=== PATIENT | male | born 1930 | race African-American/Black ===

== ENCOUNTER 2017-09-15 15:43 | Outpatient (CLI) | payer MEDICARE, MEDICAID ==
--- NOTE | 2017-09-15 17:34 | SJPRAD ---
TWO VIEW CHEST 09/15/17 COMPARISON: 06/14/17. CLINICAL HISTORY: Chronic bronchitis. FINDINGS: There is abnormal interstitial reticulonodular opacification throughout the right lung, new from prio r exam. Lungs are hyperinflated. Cardiomediastinal silhouette is stable. IMPRESSION: Interval development of diffuse alveolar and interstitial opacities in the right lung favoring atypic al pneumonia. Followup to resolution is recommended. POS: [facility]
== END 2017-09-15 15:44 | disposition home or self-care (01) ==
LOC: MWLC RAD 15:43
PROVIDERS: ATTEND Family Medicine
DX: J41.1 Mucopurulent chronic bronchitis (principal)

== ENCOUNTER 2017-10-12 14:32 | Outpatient (CLI) | payer MEDICARE, MEDICAID ==
--- NOTE | 2017-10-12 15:35 | RAD ---
THREE VIEWS LUMBAR SPINE 10/12/17 HISTORY: New onset back pain. AP, lateral and cone down views of the lumbar spine demonstrate five nonribbearing lumbar vertebrae. Atherosclerotic calcification of the abdominal aorta is seen. There is an area of height loss in the superior end plate of L3 compatible with superior end plate compression fracture. This appears to hav e been present on the patient's previous CT from 06/15/17. In addition, right renal staghorn calculus is also again seen. Large amount of stool is seen in the c olon. IMPRESSION: Old superior end plate L3 fracture. No acute lumbar spine abnormality seen. POS: [facility]
== END 2017-10-12 14:33 | disposition home or self-care (01) ==
LOC: RAD 14:32
PROVIDERS: ATTEND Family Medicine
DX: M54.5 Low back pain (principal); K59.00 Constipation, unspecified
CPT/HCPCS: 72100

== ENCOUNTER 2018-01-13 08:57 | Emergency (ER) | payer MEDICARE, MEDICAID ==
[2018-01-13 10:47] LABS: Bilirubin Negative (Negative); Blood, Urine Large (Negative); Glucose, Urine (Dipstick) Negative (Negative); Leukocyte Large (Negative); Nitrite Positive (Negative); Protein, Urine (Dipstick) 100 mg/dL (Neg-Trace); Urobilinogen 0.2 mg/dL (0.2-1.0); pH, Urine 8.5 (5.0-9.0)
[2018-01-13 10:51] LABS: Clarity TURBID (Clear)
[2018-01-13 11:08] LABS: Bacteria/HPF 4+ HPF (None Seen); Hyaline Casts/LPF NONE SEEN LPF (0-3 Hyaline); RBC/HPF GREATER THAN 50-TNTC HPF (0-3); Squamous Epithelial 0-3 HPF (0-3)
== END 2018-01-13 11:41 | disposition home or self-care (01) ==
LOC: ERS 08:57
DX: T83.018A Breakdown (mechanical) of other urinary catheter, initial encounter (principal); N39.0 Urinary tract infection, site not specified; G30.9 Alzheimer's disease, unspecified; F02.80 Dementia in other diseases classified elsewhere, unspecified severity, without behavioral disturbance, psychotic disturbance, mood disturbance, and anxiety; I25.10 Atherosclerotic heart disease of native coronary artery without angina pectoris; I25.2 Old myocardial infarction; E78.5 Hyperlipidemia, unspecified; F32.9 Major depressive disorder, single episode, unspecified; Z79.02 Long term (current) use of antithrombotics/antiplatelets; Z79.899 Other long term (current) drug therapy
CPT/HCPCS: 51705; 81003; 81015; 87086

== ENCOUNTER 2018-01-18 11:27 | Observation (INO) | payer MEDICARE, MEDICAID ==
[2018-01-18 12:11] LABS: Bilirubin Negative (Negative); Blood, Urine Moderate (Negative); Clarity TURBID (Clear); Glucose, Urine (Dipstick) Negative (Negative); Leukocyte Large (Negative); Nitrite Negative (Negative); Protein, Urine (Dipstick) 100 mg/dL (Neg-Trace); Specific Gravity, Urine 1.011 (1.002-1.036); Urobilinogen 0.2 mg/dL (0.2-1.0); pH, Urine 8.5 (5.0-9.0)
[2018-01-18 12:14] LABS: Bacteria/HPF 4+ HPF (None Seen)
[2018-01-18 12:15] LABS: Pathc Cast-AUWi Flag 7.75 (0-2.49)
[2018-01-18 12:24] LABS: Crystals/HPF 4+ TRIPLE PHOS HPF (Negative); Hyaline Casts/LPF 0-3 HYALINE CAST LPF (0-3 Hyaline); Other Casts/LPF None Seen LPF (0-3 Hyaline)
[2018-01-18 12:36] LABS: #Eosinphils 0.2 thou/uL (0.0-0.7); #Lymphocytes 1.3 thou/uL (1.20-3.40); #Monocytes 0.3 thou/uL (0.11-0.59); #Neutrophils 6.1 thou/uL (1.40-6.50); %Basophils 0.6 % (0.0-1.0); %Eosinophils 2.7 % (0.0-10.0); %Lymphocytes 15.9 % (21.0-51.0); %Monocytes 3.9 % (0.0-10.0); %Neutrophils 76.9 % (42.0-75.0); Hemoglobin 13.2 g/dL (14.0-18.0); Mean Corpuscular HGB CONC 31.7 g/dL (32.0-36.0); Mean Corpuscular Volume 85.4 fl (80.0-94.0); Mean Platelet Volume 8.1 fL (7.4-10.4); Platelet Count 122 thou/uL (130-400); RBC Distribution Width 13.6 % (11.5-14.5); Red Blood Cell (RBC) Count 4.89 mill/uL (4.70-6.10); White Blood Cell (WBC) Count 7.9 thou/uL (4.8-10.8)
[2018-01-18 12:46] LABS: ALT (SGPT) Less than 7 U/L (8-55); AST (SGOT) 9 U/L (5-34); Albumin 3.5 g/dL (3.4-4.8); Alkaline Phosphatase 77 U/L (40-150); Anion Gap 13 mmol/L (10-20); BUN (Urea Nitrogen) 46 mg/dL (8.4-25.7); Bilirubin, Total 0.5 mg/dL (0.2-1.2); Calc. Creatinine Clearance 0 mL/min (70-130); Calcium 9.2 mg/dL (7.8-10.44); Carbon Dioxide 23 mmol/L (23-31); Chloride 107 mmol/L (98-107); Estimated GFR-MDRD 45; Globulin 3.9 g/dL (2.4-3.5); Glucose 109 mg/dL (83-110); Lipase 28 U/L (8-78); Potassium 4.6 mmol/L (3.5-5.1); Protein, Total 7.4 g/dL (5.8-8.1); Sodium 138 mmol/L (136-145)
[2018-01-18 12:56] LABS: CKMB 0.6 ng/mL (0-6.6); Troponin I Less than 0.010 ng/mL (< 0.028)
--- NOTE | 2018-01-18 13:01 | RAD ---
PORTABLE AP CHEST X-RAY: 01/18/2018 HISTORY: Nausea and vomiting. Low blood pressure. COMPARISON: 09/15/2017 FINDINGS: Post surgical changes related to CABG are again noted. The cardiac silhouette and pulmonary vasculat ure are within normal limits for the portable technique of the study. The interstitial and patchy pa renchymal opacities within the right lung have significantly improved, although mild bibasilar inters titial densities, as well as a few interstitial densities in the lateral right mid lung zone do persi st, probably related to areas of scarring. No new focal area of consolidation or pleural fluid is pr esent. Linear lucency overlying the lateral aspect of the left mid lung zone is likely related to an overlying skin fold. Vascular calcifications are seen in an ectatic thoracic aorta. There is evide nce of prior granulomatous disease. Osteopenia is present. IMPRESSION: Mild chronic lung changes without evidence of an acute cardiopulmonary process. POS: [facility]
[2018-01-18] MEDS ORDERED: Acetaminophen 325 MG TAB PO PRN (13:50)
[2018-01-18] MEDS ORDERED: Ondansetron ODT 4 MG TAB PO PRN (13:50)
--- NOTE | 2018-01-18 15:06 | HP ---
PRIMARY CARE PROVIDER: Mellisa Dee M.D. CHIEF COMPLAINT: Referred to the [facility] by [facility]. HISTORY OF PRESENT ILLNESS: The patient apparently had decrease in mental status and was drooling up on feeding this morning. EMS was called. The patient had hypotensive at the scene 80/50. Patient w as given 800 mL of fluid. Currently, he is awake and alert. He has no memory of the event and has d ementia. He is in no distress. His blood pressure in the emergency room 140/76, pulse 70, respirati ons 20 and temperature was 97.4. PAST MEDICAL HISTORY: History of coronary artery disease, carotid endarterectomy, history of dementi a, coronary artery disease, abdominal aortic aneurysm, frequent UTIs, suprapubic catheter, benign pro static hypertrophy, and dyslipidemia. CURRENT MEDICATIONS: Hytrin 2 mg a day, Zoloft 25 mg a day, Levaquin 500 mg a day, Plavix 75 mg a da y. SOCIAL HISTORY: Apparently lives with family. No smoking, alcohol or drugs. FAMILY HISTORY: No history available from the patient. No family member is present. ALLERGIES: No known medical allergies. REVIEW OF SYSTEMS: Basically unobtainable. Patient says no to all requests. He is not oriented to place or time. PHYSICAL EXAMINATION: VITAL SIGNS: As mentioned before, his vital signs are stable. Blood pressure 140/76, pulse 70, resp irations 20, temperature 97.4, and O2 sat 100% on room air. HEENT: Examination of his head, eyes, ears, nose, and throat reveal pupils equal and round, bilatera l arcus. Extraocular movement is grossly intact. Sclerae are white. Tympanic membranes are clear. Nose is clear. Oral mucous membranes are wet. He has multiple missing teeth with horrid dental hyg iene. NECK: No jugular venous distention, adenopathy or thyromegaly. CHEST: Clear to percussion. Clear to auscultation with no focal findings. HEART: Regular rate and rhythm. First and second heart sounds are clear. No murmurs or gallop. ABDOMEN: Soft, bowel sounds are normal. No hepatosplenomegaly, no masses, no rebound. He has a blaine ining suprapubic catheter. EXTREMITIES: Reveal no cyanosis, clubbing or edema. PULSES: Carotid, radial, femoral, and dorsalis pedis pulses intact. SKIN: Warm and dry without bruises or rash. HEME/LYMPH: No tender or swollen lymph nodes in axilla, inguinal or cervical area. Lymphatic survey , no tender or swollen lymph nodes in axilla, inguinal, and cervical area. NEUROLOGICAL: Deep tendon reflexes grossly symmetric. Moves all extremities. NEUROLOGIC: Cranial nerves II-XII are intact. IMAGING DATA: EKG unable to find, we will find and dictate diagnosis later. Chest x-ray; no cardiom egaly, CHF or infiltrate. He has postoperative changes. Chest x-ray is consistent with COPD. LABORATORY DATA: Reviewed by me. White count 79 with mild neutrophilia, hemoglobin 13.2, hematocrit 41.8, platelet count 122,000. Creatinine 1.74, BUN 46. Electrolytes normal. Liver function tests normal. Cardiac enzymes normal. He has 11-20 red cells, 11 white cells, 11-20 epithelial cells on U A. A urine culture done 5 days ago shows 2 gram-negative organisms. The patient has been on Levaqui n for same. ADMITTING DIAGNOSES: 1. Apparent altered mental status. 2. Hypotension. 3. Coronary artery disease. 4. Chronic kidney disease stage 3. 5. Chronic obstructive pulmonary disease. 6. Multi-infarct dementia. 7. 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 PLAN: 1. IV fluids. 2. Stop terazosin. As with suprapubic catheterization, he does not need any treatment for benign pr ostatic hypertrophy and it is possibly the cause of his transient hypotension. 3. Continue Plavix, sertraline, and Levaquin as he probably needs 14-21 days of antibiotics for his current infection. CODE STATUS: FULL. This is based on the old chart. Unfortunately, I have no family member here adi t I have been able to contact.
[2018-01-18] MEDS: Dextrose 5 %-0.45 % NaCl 1,000 ML IV SCH ×2 (15:27→22:51)
[2018-01-18 16:11] LABS: Troponin I Less than 0.010 ng/mL (< 0.028)
[2018-01-18 19:07] LABS: Troponin I Less than 0.010 ng/mL (< 0.028)
[2018-01-18] MEDS: Nitrofurantoin Macrocrystal 50 MG CAP PO SCH ×2 (20:09)
[2018-01-19 05:24] LABS: #Eosinphils 0.4 thou/uL (0.0-0.7); #Lymphocytes 2.5 thou/uL (1.20-3.40); #Monocytes 0.5 thou/uL (0.11-0.59); #Neutrophils 4.7 thou/uL (1.40-6.50); %Basophils 0.2 % (0.0-1.0); %Eosinophils 4.8 % (0.0-10.0); %Lymphocytes 30.8 % (21.0-51.0); %Monocytes 6.4 % (0.0-10.0); %Neutrophils 57.7 % (42.0-75.0); Hemoglobin 12.2 g/dL (14.0-18.0); Mean Corpuscular HGB CONC 32.9 g/dL (32.0-36.0); Mean Corpuscular Hemoglobin 27.8 pg (27.0-31.0); Mean Corpuscular Volume 84.6 fl (80.0-94.0); Mean Platelet Volume 7.9 fL (7.4-10.4); Platelet Count 123 thou/uL (130-400); RBC Distribution Width 13.3 % (11.5-14.5); Red Blood Cell (RBC) Count 4.39 mill/uL (4.70-6.10); White Blood Cell (WBC) Count 8.2 thou/uL (4.8-10.8)
[2018-01-19 05:37] LABS: Anion Gap 12 mmol/L (10-20); BUN (Urea Nitrogen) 39 mg/dL (8.4-25.7); Calc. Creatinine Clearance 25 mL/min (70-130); Calcium 8.4 mg/dL (7.8-10.44); Carbon Dioxide 21 mmol/L (23-31); Chloride 105 mmol/L (98-107); Estimated GFR-MDRD 66; Glucose 104 mg/dL (83-110); Potassium 4.1 mmol/L (3.5-5.1); Sodium 134 mmol/L (136-145)
[2018-01-19] MEDS: Dextrose 5 %-0.45 % NaCl 1,000 ML IV SCH (05:40)
[2018-01-19 07:09] VITALS: TEMP 97.5
[2018-01-19] MEDS: Nitrofurantoin Macrocrystal 50 MG CAP PO SCH ×2 (08:44)
[2018-01-19] MEDS ORDERED: Clopidogrel Bisulfate 75 MG TAB PO SCH (09:00)
[2018-01-19 11:11] VITALS: BP 149/58
--- NOTE | 2018-01-19 11:23 | PDOC.PN ---
- Subjective Encounter Start Date: 01/19/18 Encounter Start Time: 11:21 Subjective: alertt - Objective Resuscitation Status: Resuscitation Status FULL:Full Resuscitation MAR Reviewed: Yes Vital Signs & Weight: Vital Signs (12 hours) Temp Pulse Resp BP Pulse Ox 01/19/18 11:10 97.5 F L 66 16 149/58 H 99 01/19/18 08:00 97.5 F L 67 16 98 01/19/18 07:08 97.5 F L 67 16 123/87 98 01/19/18 04:00 97.8 F 61 16 156/64 H 99 01/19/18 00:00 97.5 F L 65 16 138/66 100 Weight Weight 97 lb I&O: 01/18/18 01/19/18 01/20/18 06:59 06:59 06:59 Intake Total 3010 300 Output Total 250 650 Balance 2760 -350 Result Diagrams: 01/19/18 04:54 01/19/18 04:54 Phys Exam - Physical Examination Neck: no JVD Respiratory: clear to auscultation bilateral Cardiovascular: RRR, no significant murmur Gastrointestinal: soft, positive bowel sounds Musculoskeletal: no edema Dx/Plan (1) Hypotension Status: Acute Qualifiers: Hypotension type: unspecified hypotension type Qualified Code(s): I95.9 - Hypotension, unspecified (2) Edphq-ok-yqobbgr kidney injury Code(s): N17.9 - ACUTE KIDNEY FAILURE, UNSPECIFIED; N18.9 - CHRONIC KIDNEY DISEASE, UNSPECIFIED Status: Acute Qualifiers: Chronic kidney disease stage: stage 3 (moderate) Comment: Resolving with supportive mgmt, fluids and abx (3) CAD (coronary artery disease) Code(s): I25.10 - ATHSCL HEART DISEASE OF [place] CORONARY ARTERY W/O ANG PCTRS Status: Chronic Qualifiers: Coronary Disease-Associated Artery/Lesion type: [place] artery [place] vs. transplanted heart: [place] heart Associated angina: without angina Qualified Code(s): I25.10 - Atherosclerotic heart disease of [place] coronary artery without angina pectoris (4) Dementia Code(s): F03.90 - UNSPECIFIED DEMENTIA WITHOUT BEHAVIORAL DISTURBANCE Status: Chronic Qualifiers: Dementia type: vascular dementia Dementia behavioral disturbance: without behavioral disturbance Qualified Code(s): F01.50 - Vascular dementia without behavioral disturbance (5) Suprapubic catheter Code(s): Z93.59 - OTHER CYSTOSTOMY STATUS Status: Acute - Plan 1/2 blood C&S staph epi- contamenent -: urine C&S mixed raven- colonized -: BP ok off terrazosin- cont off , call family re DC home * .
[2018-01-19 12:15] VITALS: BMI 15.6
--- NOTE | 2018-01-19 12:42 | DIS ---
DATE OF ADMISSION: 01/18/2018 DATE OF DISCHARGE: 01/19/2018 PRIMARY CARE PROVIDER: Mellisa Dee M.D. DISCHARGE DISPOSITION: Home. FINAL DIAGNOSES: Hypotension, resolved; multi-infarct dementia; coronary artery disease, without ang ellyn; chronic kidney disease, stage 3; suprapubic catheter; chronic bladder colonization. DISCHARGE MEDICATIONS: Zoloft 25 mg a day, glucosamine 1500 mg a day, Plavix 75 mg a day, nitrofuran toin 100 mg p.o. b.i.d., Tessalon 100 mg p.o. t.i.d. p.r.n. ALLERGIES: No known allergies. PENDING AT THE TIME OF DISCHARGE: Nothing. CODE STATUS: FULL. HOSPITAL COURSE: Patient was sent to the hospital for drooling, decreased mental status and found to have a low blood pressure by EMS. By the time he got to the emergency room, his symptoms have resol shaheen. In review of his medicines, he is on terazosin for benign prostatic hypertrophy and urinary ret ention, he has a chronic indwelling suprapubic catheter, it does not void to his prostate. This was discontinued. His blood pressures subsequently 156/64, 123/87, 149/58. He is awake, alert, and in h is baseline mental status. Laboratory done. CBC: White count 7.9, follow up 8.2. Hemoglobin 13.2, follow up 12.2. Platelet count 122,000, follow up 123,000. Initial creatinine 1.74, follow up 1.25 . BUN 46, follow up 39. Electrolytes balanced. Cardiac enzymes normal x3. His blood culture 1 out of 2 grew a gram positive Staph epi, which is considered a contaminant. His urine culture is mixed culture, isolation in progress. He shows no signs of infection with a normal white count, no fever, chills, etc. He is being discharged. His last bladder culture grew four different bacteria and prob trip with indwelling catheter is his chronic colonization. This patient has chronic bladder colonizati on with no evidence of infection. DIET: As tolerated. AMBULATION: As tolerated. CONSULTATIONS: None. PROCEDURES: None. I have discussed his care with his family. Follow up with Dr. Dee in 7 days.
== END 2018-01-19 16:10 | disposition home or self-care (01) ==
LOC: ERS 11:27 → T4-A 13:20
PROVIDERS: ADMIT Internal Medicine; ATTEND Internal Medicine
DX: I95.9 Hypotension, unspecified (principal); F01.50 Vascular dementia, unspecified severity, without behavioral disturbance, psychotic disturbance, mood disturbance, and anxiety; I25.10 Atherosclerotic heart disease of native coronary artery without angina pectoris; N18.3 Chronic kidney disease, stage 3 (moderate); E78.5 Hyperlipidemia, unspecified; N40.0 Benign prostatic hyperplasia without lower urinary tract symptoms; J44.9 Chronic obstructive pulmonary disease, unspecified; N20.0 Calculus of kidney; N17.9 Acute kidney failure, unspecified; Z79.02 Long term (current) use of antithrombotics/antiplatelets; Z79.2 Long term (current) use of antibiotics; Z79.899 Other long term (current) drug therapy; Z96.0 Presence of urogenital implants; Z98.890 Other specified postprocedural states; Z87.891 Personal history of nicotine dependence; Z87.440 Personal history of urinary (tract) infections
CPT/HCPCS: 71045; 80048; 80053; 82553; 83605; 83690; 84484 ×2; 85025 ×2; 87040; 87077; 87086; 87149 ×2; 87186; 93005; 96361 ×2; 96374; 99285; G0378; 36415; 81003; 81015; J0696

== ENCOUNTER 2018-05-01 20:02 | Inpatient (IN) | payer MEDICARE, MEDICAID ==
[2018-05-01 20:49] LABS: #Eosinphils 1.2 thou/uL (0.0-0.7); #Lymphocytes 1.3 thou/uL (1.20-3.40); #Monocytes 0.3 thou/uL (0.11-0.59); #Neutrophils 5.5 thou/uL (1.40-6.50); %Basophils 0.4 % (0.0-1.0); %Eosinophils 14.8 % (0.0-10.0); %Lymphocytes 15.9 % (21.0-51.0); %Monocytes 3.4 % (0.0-10.0); %Neutrophils 65.6 % (42.0-75.0); Mean Corpuscular HGB CONC 32.7 g/dL (32.0-36.0); Mean Corpuscular Hemoglobin 28.5 pg (27.0-31.0); Mean Corpuscular Volume 87.3 fL (78.0-98.0); Mean Platelet Volume 7.7 fL (7.4-10.4); Platelet Count 153 thou/uL (130-400); Red Blood Cell (RBC) Count 4.91 mill/uL (4.70-6.10); White Blood Cell (WBC) Count 8.3 thou/uL (4.8-10.8)
--- NOTE | 2018-05-01 20:52 | RAD ---
PORTABLE CHEST ONE VIEW 05/01/18 at 8:18 p.m. HISTORY: Altered mental status. FINDINGS: Comparison made with exam of 01/18/18. The heart size is normal. The aorta is tortuous. Changes of median sternotomy again seen. The lungs a re well expanded without lobar consolidation, pneumothoraces or pleural effusions. Mild chronic lance es are again seen. IMPRESSION: No acute process. POS: [facility]
[2018-05-01 21:12] LABS: ALT (SGPT) Less than 7 U/L (8-55); AST (SGOT) 10 U/L (5-34); Albumin 3.6 g/dL (3.4-4.8); Alkaline Phosphatase 91 U/L (40-150); Anion Gap 18 mmol/L (10-20); BUN (Urea Nitrogen) 62 mg/dL (8.4-25.7); Bilirubin, Total 0.5 mg/dL (0.2-1.2); CK (CPK) 12 U/L (30-200); Calc. Creatinine Clearance 0 mL/min (70-130); Calcium 9.7 mg/dL (7.8-10.44); Carbon Dioxide 21 mmol/L (23-31); Chloride 104 mmol/L (98-107); Estimated GFR-MDRD 41; Globulin 4.5 g/dL (2.4-3.5); Glucose 80 mg/dL (83-110); Potassium 4.7 mmol/L (3.5-5.1); Protein, Total 8.1 g/dL (5.8-8.1); Sodium 138 mmol/L (136-145)
[2018-05-01 21:15] LABS: Troponin I Less than 0.010 ng/mL (< 0.028)
[2018-05-01 21:24] LABS: Bilirubin Negative (Negative); Blood, Urine Small (Negative); Clarity TURBID (Clear); Glucose, Urine (Dipstick) 100 mg/dL (Negative); Leukocyte Large (Negative); Nitrite Positive (Negative); Protein, Urine (Dipstick) 100 mg/dL (Neg-Trace); Specific Gravity, Urine 1.018 (1.002-1.036); Urobilinogen 0.2 mg/dL (0.2-1.0); pH, Urine 8.5 (5.0-9.0)
[2018-05-01 21:28] LABS: Bacteria/HPF 4+ HPF (None Seen); WBC/HPF 21-50 HPF (0-3)
[2018-05-01 21:34] LABS: Pathc Cast-AUWi Flag 3.86 (0-2.49)
[2018-05-01 21:43] LABS: Crystals/HPF 2+ TRIPLE PHOS HPF (Negative)
[2018-05-01] MEDS ORDERED: cefTRIAXone\\ROCEPHIN 1 GM VIAL ONE (22:22)
[2018-05-01] MEDS ORDERED: Sodium Chloride 0.9% 100 ML ONE (22:22)
[2018-05-02] MEDS ORDERED: Ondansetron HCl/PF 4 MG/2 ML Vial IVP PRN (01:20)
[2018-05-02] MEDS ORDERED: Acetaminophen 325 MG TAB PO PRN (01:20)
[2018-05-02] MEDS ORDERED: Sodium Chloride 0.9% 1,000 ML IV SCH (01:20)
[2018-05-02] MEDS ORDERED: Ondansetron ODT 4 MG TAB SL PRN (01:20)
[2018-05-02 02:25] VITALS: BMI 12.4
[2018-05-02] MEDS ORDERED: cefTRIAXone Sodium 1 MG in Syringe 0 ML IVPB SCH (11:45)
[2018-05-02] MEDS: Dextrose 5 % And 0.9 % NaCl 1,000 ML IV SCH (11:53)
--- NOTE | 2018-05-02 15:24 | HP ---
DATE OF ADMISSION: 05/02/2018 CHIEF COMPLAINT: Worsening mental status and decreased appetite and weakness. HISTORY OF PRESENT ILLNESS: Patient is a pleasant 87-year-old patient who is demented. Most of the history and physical has been obtained from the chart. There is no family at bedside. Patient is an 87-year-old man who lives with his family, who according to documentation has been having loss of ap petite, decreased oral intake, worsening confusion and just generalized weakness. According to the mamie amezcua, the patient has had a suprapubic catheter which was noted for having cloudy urine for the past several days. Unknown time of when the catheter was exchanged. The patient currently is unable to p rovide any history. PAST MEDICAL HISTORY: 1. This is per documentations. Patient has a history of Alzheimer's dementia. 2. History of UTIs in the past. He has had BPH. 3. He has a history of coronary artery disease. 4. He has a history of abdominal aortic aneurysm and dyslipidemia. PAST SURGICAL HISTORY: Has a history of carotid endarterectomy. MEDICATIONS: Plavix 75 mg a day, Levaquin 500 mg a day, Zoloft 25 mg a day, Hytrin 25 mg daily, acyc lovir 400 mg daily for unknown reasons. SOCIAL HISTORY: He lives with his daughter. Has a remote history of smoking in the past. Former sm oker. No alcohol or drug use. FAMILY HISTORY: Unable to obtain since patient unable to provide this. ALLERGIES: He has no known drug allergies. REVIEW OF SYSTEMS: Unable to obtain given the patient's mentation. PHYSICAL EXAMINATION: VITAL SIGNS: Temperature of 97.5, 53, 14, 99% on room air, 144/76. GENERAL: He is awake, alert, oriented only to self. He also has some mild temporal wasting and very cachectic appearing patient. CARDIOVASCULAR: S1 and S2 present. No murmurs, rubs or gallops. LUNGS: Clear to auscultation. No rhonchi or wheezes noted. ABDOMEN: Soft, nontender. Bowel sounds present x2. He does have a suprapubic catheter which does a ppear to have cloudy urine. HEENT: Mucous membranes are mildly dehydrated. LABORATORY DATA AND IMAGING DATA: Laboratory results are as of the following; WBCs of 8.3, hemoglobi n of 14.0, hematocrit of 42.9, platelets of 153. Chemistry: Sodium of 130, potassium 4.7, bicarbona te of 21, which is at baseline, BUN of 62, creatinine 1.87. TSH was 0.9. Troponin is negative. The patient did have a chest x-ray which did not indicate any acute abnormalities. ASSESSMENT AND PLAN: The patient is a very pleasant 87-year-old male who presents to the hospital fo r weakness and decreased appetite and possible worsening confusion. 1. Acute encephalopathy could be possibly secondary to the urinary tract infection versus worsening dementia. Patient has had a history of staghorn calculi and his urine does indicate positive nitrite s and large amount of leukocyte esterase with 2+ triple phosphate. We will start patient on ceftriax one. His last culture indicated Proteus mirabilis. We will start him on ceftriaxone for now. We wi ll continue to monitor. We will give him some gentle hydration. 2. UTI. We will continue antibiotics. We will ask family to see when the catheter was changed. Ck he require Urology consult for changing of his catheter. 3. Moderate malnutrition. Patient appears very cachectic and according to family has not been takin g in oral very much. We will encourage p.o. intake and also may consider getting palliative care for his chronic disease. 4. History of coronary artery disease. Continue the Plavix. 5. History of Alzheimer's dementia. We will continue to monitor. 6. History of aortic aneurysm which is stable. Continue to monitor. 7. Acute chronic kidney disease. The patient's creatinine is at baseline. We will continue to mitzi tor. 8. Deep venous thrombosis prophylaxis. We will put patient on subcu heparin.
[2018-05-02] MEDS: Famotidine 20 MG TAB PO SCH (21:36)
[2018-05-02] MEDS: Docusate 100 MG CAP PO SCH (21:36)
[2018-05-02] MEDS: cefTRIAXone\\ROCEPHIN 1 GM in Sodium Chloride 0.9% 100 ML IVPB SCH (21:37)
[2018-05-02] MEDS: Heparin 5,000 UNITS/ML VIAL SC SCH (21:37)
[2018-05-03] MEDS: Dextrose 5 % And 0.9 % NaCl 1,000 ML IV SCH ×2 (02:03→15:27)
[2018-05-03 04:43] LABS: #Eosinphils 0.9 thou/uL (0.0-0.7); #Lymphocytes 1.8 thou/uL (1.20-3.40); #Monocytes 0.4 thou/uL (0.11-0.59); #Neutrophils 3.4 thou/uL (1.40-6.50); %Basophils 0.3 % (0.0-1.0); %Eosinophils 13.4 % (0.0-10.0); %Lymphocytes 28.1 % (21.0-51.0); %Monocytes 6.1 % (0.0-10.0); %Neutrophils 52.1 % (42.0-75.0); Mean Corpuscular HGB CONC 32.1 g/dL (32.0-36.0); Mean Corpuscular Hemoglobin 28.4 pg (27.0-31.0); Mean Corpuscular Volume 88.6 fL (78.0-98.0); Mean Platelet Volume 7.7 fL (7.4-10.4); Platelet Count 139 thou/uL (130-400); RBC Distribution Width 14.7 % (11.5-14.5); Red Blood Cell (RBC) Count 3.88 mill/uL (4.70-6.10); White Blood Cell (WBC) Count 6.5 thou/uL (4.8-10.8)
[2018-05-03 04:51] LABS: Anion Gap 11 mmol/L (10-20); BUN (Urea Nitrogen) 33 mg/dL (8.4-25.7); Calc. Creatinine Clearance 23 mL/min (70-130); Calcium 8.1 mg/dL (7.8-10.44); Carbon Dioxide 21 mmol/L (23-31); Chloride 110 mmol/L (98-107); Estimated GFR-MDRD 73; Glucose 89 mg/dL (83-110); Potassium 3.7 mmol/L (3.5-5.1); Sodium 138 mmol/L (136-145)
[2018-05-03] MEDS: Clopidogrel Bisulfate 75 MG TAB PO SCH (08:53)
[2018-05-03] MEDS: Heparin 5,000 UNITS/ML VIAL SC SCH ×2 (08:54→20:01)
[2018-05-03] MEDS: Docusate 100 MG CAP PO SCH ×2 (08:54→20:01)
[2018-05-03] MEDS ORDERED: Prevnar 13-Val Conj/PF 0.5 ML SYRINGE IM ONE (09:00)
--- NOTE | 2018-05-03 14:16 | PQF ---
CLINICAL DOCUMENTATION IMPROVEMENT CLARIFICATION FORM: ICD-10 Updated PLEASE DO AN ADDENDUM TO THE PROGRESS NOTE WITH ANY DOCUMENTATION UPDATES OR ADDITIONS AND CARRY THROUGH TO DC SUMMARY. THANK YOU. DATE: 05/0305-04-18 ATTN: DR. PAOLA BERGER / DR. BURNS Please exercise your independent, professional judgment in responding to the clarification form. Clinical indicators are provided on the bottom of this form for your review. Please check appropriate box(s): ____x___ I (concur) with the Nursing Admission Skin Assessment findings as stated below. [ ] Pressure Ulcer: (Stage I: Erythema; Stage II: Partial thickness; Stage III : Full thickness; Stage IV: Necrosis to muscle/bone) [ ] Location: POA: [ ] Yes [ ] No [ ] Unable to determine Stage (I to IV): (Left Right Bilateral N/A ) [ ] Location: POA: [ ] Yes [ ] No [ ] Unable to determine Stage (I to IV): (Left Right Bilateral N/A ) [ ] Location: POA: [ ] Yes [ ] No [ ] Unable to determine Stage (I to IV): (Left Right Bilateral N/A ) [ ] No pressure ulcer diagnosis [ ] Other diagnosis [ ] Unable to determine In addition, please specify: Present on Admission (POA): [ ] Yes [ ] No [ x ] Unable to determine For continuity of documentation, please document condition throughout progress notes and discharge summary. Thank You. CLINICAL INDICATORS - SIGNS / SYMPTOMS / LABS NURSING ADMISSION SKIN ASSESSMENT 05/02: STAGE II PRESSURE ULCER TO R HIP; STAGE II PRESSURE ULCER TO SACROCOCCYXGEAL RISK FACTORS: ALZHEIMER'S DEMENTIA MODERATE MALNUTRITION TREATMENTS: WAFFLE MATTRESS TURN Q2 HRS MEPILEX APPLIED THANK YOU! Shelly (This form is maintained as a part of the permanent medical record) 2014 [employer]. All Rights Reserved Shelly Amaya RN, BSN [email or web address] Office: [phone] [facility]
--- NOTE | 2018-05-03 14:30 | PQF ---
CLINICAL DOCUMENTATION IMPROVEMENT CLARIFICATION FORM: ICD-10 Updated PLEASE DO AN ADDENDUM TO THE PROGRESS NOTE WITH ANY DOCUMENTATION UPDATES OR ADDITIONS AND CARRY THROUGH TO DC SUMMARY. THANK YOU. DATE: 05/0305-04-18 ATTN: DR. PAOLA BERGER / DR. BURNS Please exercise your independent, professional judgment in responding to the clarification form. Clinical indicators are provided on the bottom of this form for your review. Please check appropriate box(s): [ x ] UTI please specify if due to or related to (as applicable): [ x ] Suprapubic catheter [ ] Unable to determine etiology [ ] Contaminated urine specimen without UTI [ ] Other diagnosis [ ] Unable to determine For continuity of documentation, please document condition throughout progress notes and discharge summary. Thank You. CLINICAL INDICATORS - SIGNS / SYMPTOMS / LABS ER PHYSICIAN DOCUMENTATION 05/02: HAS A SUPRAPUBIC CATHETER WHICH HAS BEEN DRAINING CLOUDY URINE IN THE LAST SEVERAL DAYS ER PHYSICIAN FINAL DIAGNOSIS: UTI PHYSICIAN H&P DOCUMENTATION 05/02: HX OF PRESENT ILLNESS: ...ACCORDING TO THE NOTES, THE PATIENT HAS HAD A SUPRAPUBIC CATHETER WHICH WAS NOTED FOR HAVING CLOUDY URINE FOR THE PAST SEVERAL DAYS. UNKNOWN TIME OF WHEN THE CATHETER WAS EXCHANGED. PAST MEDICAL HX: 2) HISTORY OF UTI'S. HE HAS HAD BPH PHYSICAL EXAM: ABDOMEN: HE DOES HAVE A SUPRAPUBIC CATHETER WHICH DOES APPEAR TO HAVE CLOUDY URINE ASSESSMENT & PLAN: 2) UTI. WE WILL CONTINUE ANTIBIOTICS. WE WILL ASK FAMILY TO SEE WHEN CATHETER WAS CHANGED. RISK FACTORS: HISTORY OF BPH & FREQUENT UTI'S SUPRAPUBIC CATHETER ALZHEIMER'S DEMENTIA TREATMENT: IV ANTIBIOTIC (ROCEPHIN 05/02 - PRESENT) IVF (D5 NS 05/02 - PRESENT) THANK YOU! Shelly (This form is maintained as a part of the permanent medical record) 2014 [employer]. All Rights Reserved Shelly Amaya RN, BSN [email or web address] Office: [phone] [facility]
--- NOTE | 2018-05-03 14:37 | PDOC.PN ---
- Subjective Encounter Start Date: 05/03/18 Encounter Start Time: 11:15 Subjective: pt up in bed confused - Objective Resuscitation Status: Resuscitation Status FULL:Full Resuscitation Vital Signs & Weight: Vital Signs (12 hours) Temp Pulse Resp BP Pulse Ox 05/03/18 08:00 97.4 F L 67 16 100 05/03/18 07:21 97.4 F L 67 16 175/86 H 97 Weight Admit Weight 79 lb 2 oz Weight 79 lb 2 oz I&O: 05/02/18 05/03/18 05/04/18 06:59 06:59 06:59 Intake Total 450 2641 Output Total 850 Balance 450 1791 Result Diagrams: 05/03/18 03:42 05/03/18 03:42 Phys Exam - Physical Examination HEENT: PERRLA, moist MMs, sclera anicteric, TM's clear, oral pharynx no lesions , 2+ tonsils Respiratory: no wheezing, no rales, no rhonchi, wheezing present, clear to auscultation bilateral Cardiovascular: RRR, no significant murmur, no rub, gallop, irregular Gastrointestinal: soft, non-tender, no distention, positive bowel sounds alert but oriented to self only Deviation from normal: suprapubic cath Dx/Plan (1) Acute metabolic encephalopathy Code(s): G93.41 - METABOLIC ENCEPHALOPATHY Status: Acute (2) UTI (urinary tract infection) Status: Acute Comment: Due to Klebsiella spp (3) Fjsag-yd-ukotkkr kidney injury Code(s): N17.9 - ACUTE KIDNEY FAILURE, UNSPECIFIED; N18.9 - CHRONIC KIDNEY DISEASE, UNSPECIFIED Status: Acute Comment: Resolving with supportive mgmt, fluids and abx (4) Suprapubic catheter Code(s): Z93.59 - OTHER CYSTOSTOMY STATUS Status: Acute (5) Mild protein-calorie malnutrition Code(s): E44.1 - MILD PROTEIN-CALORIE MALNUTRITION Status: Chronic Comment: pt is under wt, Ensure TID with meals - Plan will continue abx for now, pt's mentation has improved -: his suprapubic cath changed on 05/15 -: palliative care consulted, gram + cocci in one blood cx. pt clinically -: improving. will not add any more abx * . Review of Systems - Review of Systems Other: unable to obtain - Medications/Allergies Allergies/Adverse Reactions: Allergies Allergy/AdvReac Type Severity Reaction Status Date / Time No Known Allergies Allergy Verified 11/09/15 16:10 Medications: Current Medications Clopidogrel Bisulfate (Plavix) 75 mg PO DAILY [facility] Last Admin: 05/03/18 08:53 Dose: 75 mg Docusate Sodium (Colace) 100 mg PO BID [facility] Last Admin: 05/03/18 08:54 Dose: 100 mg Famotidine (Pepcid) 20 mg PO QPM [facility] Last Admin: 05/02/18 21:36 Dose: 20 mg Heparin Sodium (Porcine) (Heparin) 5,000 units SC BID [facility] Last Admin: 05/03/18 08:54 Dose: 5,000 units Dextrose/Sodium Chloride (D5 0.9% Ns) 1,000 mls @ 75 mls/hr IV .[id number] [facility] Last Admin: 05/03/18 02:03 Dose: 1,000 mls Ceftriaxone Sodium 1 gm/ (Sodium Chloride) 100 mls @ 200 mls/hr IVPB 2200 [facility] Last Admin: 05/02/18 21:37 Dose: 100 mls Sertraline HCl (Zoloft) 25 mg PO DAILY [facility] Last Admin: 05/03/18 08:55 Dose: 25 mg Sodium Chloride (Flush - Normal Saline) 10 ml IVF Q12HR [facility] Last Admin: 05/03/18 08:56 Dose: Not Given Sodium Chloride (Flush - Normal Saline) 10 ml IVF PRN PRN PRN Reason: Saline Flush
[2018-05-03] MEDS: Famotidine 20 MG TAB PO SCH (20:01)
[2018-05-03] MEDS: cefTRIAXone\\ROCEPHIN 1 GM in Sodium Chloride 0.9% 100 ML IVPB SCH (22:05)
[2018-05-04] MEDS: Dextrose 5 % And 0.9 % NaCl 1,000 ML IV SCH ×2 (03:30→05:05)
[2018-05-04] MEDS: Docusate 100 MG CAP PO SCH ×2 (08:16→20:37)
[2018-05-04] MEDS: Clopidogrel Bisulfate 75 MG TAB PO SCH (08:16)
[2018-05-04] MEDS: Heparin 5,000 UNITS/ML VIAL SC SCH ×2 (08:17→20:37)
[2018-05-04] MEDS ORDERED: Artificial Tears 18 DROP/0.9 ML EA EYE PRN (08:59)
[2018-05-04] MEDS ORDERED: Acetaminophen 325 MG TAB PO PRN (08:59)
[2018-05-04] MEDS ORDERED: Mag-Al 1200 mg/1200 mg/30 ML UDCUP PO PRN (08:59)
[2018-05-04] MEDS ORDERED: Ondansetron ODT 4 MG TAB PO PRN (08:59)
[2018-05-04] MEDS ORDERED: Chloraseptic Spray 180 ml Bottle PO PRN (08:59)
[2018-05-04] MEDS ORDERED: Eucerin (Mineral Oil/Petrolatum,White) 30 gm Jar TOP PRN (08:59)
[2018-05-04] MEDS ORDERED: Diabetic Tussin 200 MG/10 ML UDCUP PO PRN (08:59)
[2018-05-04] MEDS ORDERED: Milk Of Magnesia 30 ML UDCUP PO PRN (08:59)
[2018-05-04] MEDS ORDERED: Sodium Chloride 0.65% Nasal 44 ML BOT EA NARE PRN (08:59)
[2018-05-04] MEDS ORDERED: Loperamide HCl 2 MG CAP PO PRN (08:59)
[2018-05-04] MEDS ORDERED: Ondansetron HCl/PF 4 MG/2 ML Vial IVP PRN (08:59)
[2018-05-04] MEDS ORDERED: hydrALAZINE 20 MG/ML VIAL SLOW IVP PRN (08:59)
[2018-05-04] MEDS: Saccharomyces boulardii 250 MG CAP PO SCH (11:06)
--- NOTE | 2018-05-04 13:38 | PDOC.PN ---
- Subjective Encounter Start Date: 05/04/18 Encounter Start Time: 09:00 -: old records requested/rev Patient seen and examined. No new complaints. No overnight events - Objective Resuscitation Status: Resuscitation Status FULL:Full Resuscitation MAR Reviewed: Yes Vital Signs & Weight: Vital Signs (12 hours) Temp Pulse Resp BP Pulse Ox 05/04/18 10:54 98.1 F 69 16 144/69 H 95 05/04/18 08:00 97.0 F L 75 18 94 L 05/04/18 07:34 97.0 F L 75 18 147/71 H 94 L Weight Admit Weight 79 lb 2 oz Weight 79 lb 2 oz I&O: 05/03/18 05/04/18 05/05/18 06:59 06:59 06:59 Intake Total 2641 1720 Output Total 850 Balance 1791 1720 Result Diagrams: 05/03/18 03:42 05/03/18 03:42 Radiology Reviewed by me: Yes Phys Exam - Physical Examination Constitutional: NAD HEENT: PERRLA, moist MMs, sclera anicteric Neck: no JVD, supple Respiratory: no wheezing, no rales, no rhonchi Cardiovascular: RRR, no significant murmur, no rub Gastrointestinal: soft, non-tender, no distention, positive bowel sounds suprapubic catheter Musculoskeletal: no edema, pulses present Neurological: moves all 4 limbs Psychiatric: normal affect Skin: no rash, normal turgor Dx/Plan (1) Acute kidney failure Status: Resolved (2) Acute metabolic encephalopathy Code(s): G93.41 - METABOLIC ENCEPHALOPATHY Status: Resolved (3) UTI (urinary tract infection) due to urinary indwelling catheter Code(s): T83.511A - I/I REACT D/T INDWELLING URETHRAL CATHETER, INIT; N39.0 - URINARY TRACT INFECTION, SITE NOT SPECIFIED Status: Acute Qualifiers: Indwelling urinary catheter type: cystostomy catheter (4) Anxiety and depression Code(s): F41.9 - ANXIETY DISORDER, UNSPECIFIED; F32.9 - MAJOR DEPRESSIVE DISORDER, SINGLE EPISODE, UNSPECIFIED Status: Chronic (5) CAD (coronary artery disease) Code(s): I25.10 - ATHSCL HEART DISEASE OF [place] CORONARY ARTERY W/O ANG PCTRS Status: Chronic Qualifiers: Coronary Disease-Associated Artery/Lesion type: [place] artery [place] vs. transplanted heart: [place] heart Associated angina: without angina Qualified Code(s): I25.10 - Atherosclerotic heart disease of [place] coronary artery without angina pectoris (6) Dementia Code(s): F03.90 - UNSPECIFIED DEMENTIA WITHOUT BEHAVIORAL DISTURBANCE Status: Chronic Qualifiers: Dementia type: vascular dementia Dementia behavioral disturbance: without behavioral disturbance Qualified Code(s): F01.50 - Vascular dementia without behavioral disturbance (7) Protein-calorie malnutrition, moderate Code(s): E44.0 - MODERATE PROTEIN-CALORIE MALNUTRITION Status: Chronic (8) Suprapubic catheter Code(s): Z93.59 - OTHER CYSTOSTOMY STATUS Status: Chronic - Plan cont current plan of care, continue antibiotics * continue rocephin * dc IVF * medication reviewed as below * symptomatic treatment * will need placement. Review of Systems - Review of Systems Eyes: negative: Pain, Vision Change, Conjunctivae Inflammation, Eyelid Inflammation, Redness, Other ENT: negative: Ear Pain, Ear Discharge, Nose Pain, Nose Discharge, Nose Congestion, Mouth Pain, Mouth Swelling, Throat Pain, Throat Swelling, Other Respiratory: negative: Cough, Dry, Shortness of Breath, Hemoptysis, SOB with Excertion, Pleuritic Pain, Sputum, Wheezing Cardiovascular: negative: chest pain, palpitations, orthopnea, paroxysmal nocturnal dyspnea, edema, light headedness, other Gastrointestinal: negative: Nausea, Vomiting, Abdominal Pain, Diarrhea, Constipation, Melena, Hematochezia, Other Genitourinary: negative: Dysuria, Frequency, Incontinence, Hematuria, Retention , Other Musculoskeletal: negative: Neck Pain, Shoulder Pain, Arm Pain, Back Pain, Hand Pain, Leg Pain, Foot Pain, Other - Medications/Allergies Allergies/Adverse Reactions: Allergies Allergy/AdvReac Type Severity Reaction Status Date / Time No Known Allergies Allergy Verified 11/09/15 16:10 Medications: Current Medications Acetaminophen (Tylenol) 650 mg PO Q4H PRN PRN Reason: Headache/Fever or Mild Pain Al Hydroxide/Mg Hydroxide (Maalox) 15 ml PO Q4H PRN PRN Reason: Heartburn or Indigestion Artificial Tears (Tears Naturale) 0 drop EA EYE PRN PRN PRN Reason: Dry Eyes Clopidogrel Bisulfate (Plavix) 75 mg PO DAILY [facility] Last Admin: 05/04/18 08:16 Dose: 75 mg Docusate Sodium (Colace) 100 mg PO BID [facility] Last Admin: 05/04/18 08:16 Dose: 100 mg Famotidine (Pepcid) 20 mg PO QPM [facility] Last Admin: 05/03/18 20:01 Dose: 20 mg Guaifenesin (Robitussin Sf) 200 mg PO Q4H PRN PRN Reason: Cough Heparin Sodium (Porcine) (Heparin) 5,000 units SC BID [facility] Last Admin: 05/04/18 08:17 Dose: 5,000 units Hydralazine HCl (Apresoline) 10 mg SLOW IVP Q4H PRN PRN Reason: Systolic BP > 180 Dextrose/Sodium Chloride (D5 0.9% Ns) 1,000 mls @ 75 mls/hr IV .[id number] [facility] Last Admin: 05/04/18 05:05 Dose: 1,000 mls Ceftriaxone Sodium 1 gm/ (Sodium Chloride) 100 mls @ 200 mls/hr IVPB 2200 [facility] Last Admin: 05/03/18 22:05 Dose: 100 mls Loperamide HCl (Imodium) 2 mg PO PRN PRN PRN Reason: Diarrhea/Loose Stools Magnesium Hydroxide (Milk Of Magnesium) 30 ml PO DAILYPRN PRN PRN Reason: Constipation Mineral Oil/White Petrolatum (Eucerin Cream) 0 gm TOP BIDPRN PRN PRN Reason: Dry Skin Mirabegron (Myrbetriq Er) 25 mg PO DAILY [facility] Last Admin: 05/04/18 11:07 Dose: 25 mg Mometasone Furoate/Formoterol Fumar (Dulera 200 Mcg/5 Mcg Inhaler) 2 puff INH BID-RT [facility] Ondansetron HCl (Zofran Odt) 4 mg PO Q6H PRN PRN Reason: Nausea/Vomiting Ondansetron HCl (Zofran) 4 mg IVP Q6H PRN PRN Reason: Nausea/Vomiting Phenol (Chloraseptic [place] 180 Ml Bot) 0 ml PO PRN PRN PRN Reason: Sore Throat Saccharomyces Boulardii (Florastor) 250 mg PO DAILY [facility] Last Admin: 05/04/18 11:06 Dose: 250 mg Sertraline HCl (Zoloft) 25 mg PO DAILY [facility] Last Admin: 05/04/18 08:15 Dose: 25 mg Sodium Chloride (Flush - Normal Saline) 10 ml IVF Q12HR [facility] Last Admin: 05/04/18 08:28 Dose: Not Given Sodium Chloride (Flush - Normal Saline) 10 ml IVF PRN PRN PRN Reason: Saline Flush Sodium Chloride ([place] Nasal [place] 0.65%) 0 ml EA NARE QIDPRN PRN PRN Reason: Nasal Congestion
[2018-05-04] MEDS: Mometasone/Formoterol 120 PUFF INHALER INH SCH (19:06)
[2018-05-04] MEDS: Famotidine 20 MG TAB PO SCH (20:36)
[2018-05-04] MEDS: cefTRIAXone\\ROCEPHIN 1 GM in Sodium Chloride 0.9% 100 ML IVPB SCH (22:05)
[2018-05-05] MEDS: Mometasone/Formoterol 120 PUFF INHALER INH SCH ×2 (07:14→18:51)
[2018-05-05] MEDS: Docusate 100 MG CAP PO SCH ×2 (08:14→22:45)
[2018-05-05] MEDS: Clopidogrel Bisulfate 75 MG TAB PO SCH (08:14)
[2018-05-05] MEDS: Saccharomyces boulardii 250 MG CAP PO SCH (08:15)
[2018-05-05] MEDS: Heparin 5,000 UNITS/ML VIAL SC SCH ×2 (08:15→22:50)
--- NOTE | 2018-05-05 12:09 | PDOC.PN ---
- Subjective Encounter Start Date: 05/05/18 Encounter Start Time: 09:00 Patient seen and examined. No new complaints. No overnight events - Objective Resuscitation Status: Resuscitation Status FULL:Full Resuscitation MAR Reviewed: Yes Vital Signs & Weight: Vital Signs (12 hours) Temp Pulse Resp BP Pulse Ox 05/05/18 08:00 97.5 F L 77 18 116/64 98 Weight Admit Weight 79 lb 2 oz Weight 79 lb 2 oz I&O: 05/04/18 05/05/18 05/06/18 06:59 06:59 06:59 Intake Total 1720 1300 Output Total 1450 Balance 1720 -150 Result Diagrams: 05/03/18 03:42 05/03/18 03:42 Phys Exam - Physical Examination Constitutional: NAD HEENT: PERRLA, moist MMs, sclera anicteric Neck: no JVD, supple Respiratory: no wheezing, no rales, no rhonchi Cardiovascular: RRR, no significant murmur, no rub Gastrointestinal: soft, non-tender, no distention, positive bowel sounds suprapubic catheter+ Musculoskeletal: no edema, pulses present Neurological: non-focal, normal sensation, moves all 4 limbs Lymphatic: no nodes Psychiatric: normal affect Skin: no rash, normal turgor Dx/Plan (1) Acute kidney failure Status: Resolved (2) Acute metabolic encephalopathy Code(s): G93.41 - METABOLIC ENCEPHALOPATHY Status: Resolved (3) UTI (urinary tract infection) due to urinary indwelling catheter Code(s): T83.511A - I/I REACT D/T INDWELLING URETHRAL CATHETER, INIT; N39.0 - URINARY TRACT INFECTION, SITE NOT SPECIFIED Status: Acute Qualifiers: Indwelling urinary catheter type: cystostomy catheter (4) Anxiety and depression Code(s): F41.9 - ANXIETY DISORDER, UNSPECIFIED; F32.9 - MAJOR DEPRESSIVE DISORDER, SINGLE EPISODE, UNSPECIFIED Status: Chronic (5) CAD (coronary artery disease) Code(s): I25.10 - ATHSCL HEART DISEASE OF [place] CORONARY ARTERY W/O ANG PCTRS Status: Chronic Qualifiers: Coronary Disease-Associated Artery/Lesion type: [place] artery [place] vs. transplanted heart: [place] heart Associated angina: without angina Qualified Code(s): I25.10 - Atherosclerotic heart disease of [place] coronary artery without angina pectoris (6) Dementia Code(s): F03.90 - UNSPECIFIED DEMENTIA WITHOUT BEHAVIORAL DISTURBANCE Status: Chronic Qualifiers: Dementia type: vascular dementia Dementia behavioral disturbance: without behavioral disturbance Qualified Code(s): F01.50 - Vascular dementia without behavioral disturbance (7) Protein-calorie malnutrition, moderate Code(s): E44.0 - MODERATE PROTEIN-CALORIE MALNUTRITION Status: Chronic (8) Suprapubic catheter Code(s): Z93.59 - OTHER CYSTOSTOMY STATUS Status: Chronic - Plan cont current plan of care, continue antibiotics, PT/OT, licensed master social worker * continue rocephin * medication reviewed as below * symptomatic treatment * will plan for discharge to [facility] tomorrow. Review of Systems - Review of Systems Eyes: negative: Pain, Vision Change, Conjunctivae Inflammation, Eyelid Inflammation, Redness, Other ENT: negative: Ear Pain, Ear Discharge, Nose Pain, Nose Discharge, Nose Congestion, Mouth Pain, Mouth Swelling, Throat Pain, Throat Swelling, Other Respiratory: negative: Cough, Dry, Shortness of Breath, Hemoptysis, SOB with Excertion, Pleuritic Pain, Sputum, Wheezing Cardiovascular: negative: chest pain, palpitations, orthopnea, paroxysmal nocturnal dyspnea, edema, light headedness, other Gastrointestinal: negative: Nausea, Vomiting, Abdominal Pain, Diarrhea, Constipation, Melena, Hematochezia, Other Genitourinary: negative: Dysuria, Frequency, Incontinence, Hematuria, Retention , Other Musculoskeletal: negative: Neck Pain, Shoulder Pain, Arm Pain, Back Pain, Hand Pain, Leg Pain, Foot Pain, Other Other: not reliable due to his cognitive status - Medications/Allergies Allergies/Adverse Reactions: Allergies Allergy/AdvReac Type Severity Reaction Status Date / Time No Known Allergies Allergy Verified 11/09/15 16:10 Medications: Current Medications Acetaminophen (Tylenol) 650 mg PO Q4H PRN PRN Reason: Headache/Fever or Mild Pain Al Hydroxide/Mg Hydroxide (Maalox) 15 ml PO Q4H PRN PRN Reason: Heartburn or Indigestion Artificial Tears (Tears Naturale) 0 drop EA EYE PRN PRN PRN Reason: Dry Eyes Clopidogrel Bisulfate (Plavix) 75 mg PO DAILY [facility] Last Admin: 05/05/18 08:14 Dose: 75 mg Docusate Sodium (Colace) 100 mg PO BID [facility] Last Admin: 05/05/18 08:14 Dose: 100 mg Famotidine (Pepcid) 20 mg PO QPM [facility] Last Admin: 05/04/18 20:36 Dose: 20 mg Guaifenesin (Robitussin Sf) 200 mg PO Q4H PRN PRN Reason: Cough Heparin Sodium (Porcine) (Heparin) 5,000 units SC BID [facility] Last Admin: 05/05/18 08:15 Dose: 5,000 units Hydralazine HCl (Apresoline) 10 mg SLOW IVP Q4H PRN PRN Reason: Systolic BP > 180 Ceftriaxone Sodium 1 gm/ (Sodium Chloride) 100 mls @ 200 mls/hr IVPB 2200 [facility] Last Admin: 05/04/18 22:05 Dose: 100 mls Loperamide HCl (Imodium) 2 mg PO PRN PRN PRN Reason: Diarrhea/Loose Stools Magnesium Hydroxide (Milk Of Magnesium) 30 ml PO DAILYPRN PRN PRN Reason: Constipation Mineral Oil/White Petrolatum (Eucerin Cream) 0 gm TOP BIDPRN PRN PRN Reason: Dry Skin Mirabegron (Myrbetriq Er) 25 mg PO DAILY [facility] Last Admin: 05/05/18 08:15 Dose: 25 mg Mometasone Furoate/Formoterol Fumar (Dulera 200 Mcg/5 Mcg Inhaler) 2 puff INH BID-RT [facility] Last Admin: 05/05/18 07:14 Dose: 2 puff Ondansetron HCl (Zofran Odt) 4 mg PO Q6H PRN PRN Reason: Nausea/Vomiting Ondansetron HCl (Zofran) 4 mg IVP Q6H PRN PRN Reason: Nausea/Vomiting Phenol (Chloraseptic [place] 180 Ml Bot) 0 ml PO PRN PRN PRN Reason: Sore Throat Saccharomyces Boulardii (Florastor) 250 mg PO DAILY [facility] Last Admin: 05/05/18 08:15 Dose: 250 mg Sertraline HCl (Zoloft) 25 mg PO DAILY [facility] Last Admin: 05/05/18 08:15 Dose: 25 mg Sodium Chloride (Flush - Normal Saline) 10 ml IVF Q12HR [facility] Last Admin: 05/05/18 08:15 Dose: 10 ml Sodium Chloride (Flush - Normal Saline) 10 ml IVF PRN PRN PRN Reason: Saline Flush Sodium Chloride ([place] Nasal [place] 0.65%) 0 ml EA NARE QIDPRN PRN PRN Reason: Nasal Congestion
[2018-05-05] MEDS: Famotidine 20 MG TAB PO SCH (22:45)
[2018-05-05] MEDS: cefTRIAXone\\ROCEPHIN 1 GM in Sodium Chloride 0.9% 100 ML IVPB SCH (23:00)
[2018-05-06] MEDS: Mometasone/Formoterol 120 PUFF INHALER INH SCH (07:00)
[2018-05-06] MEDS: Clopidogrel Bisulfate 75 MG TAB PO SCH (08:35)
[2018-05-06] MEDS: Docusate 100 MG CAP PO SCH (08:35)
[2018-05-06] MEDS: Heparin 5,000 UNITS/ML VIAL SC SCH (08:35)
[2018-05-06] MEDS: Saccharomyces boulardii 250 MG CAP PO SCH (08:36)
--- NOTE | 2018-05-06 11:17 | DIS ---
DATE OF ADMISSION: 05/02/2018 DATE OF DISCHARGE: 05/06/2018 PRIMARY CARE PHYSICIAN: Dr. Nahun Perez. DISCHARGE DISPOSITION: longterm home. PRIMARY DISCHARGE DIAGNOSES: Urinary tract infection due to suprapubic catheter ; acute metabolic encephalopathy, resolved; acute kidney failure, resolved. SECONDARY DISCHARGE DIAGNOSES: Alzheimer's type dementia; coronary artery disease; protein calorie malnutrition, moderate; anxiety and depression. PRIMARY PROCEDURE AND OPERATION: None. RADIOLOGICAL INVESTIGATION: Chest x-ray was normal. SIGNIFICANT LABORATORY DATA: WBC 6.5, hemoglobin 11.0, platelet 139. Sodium 138, potassium 3.7, BUN 33, creatinine 1.14, calcium 8.1. LFT normal. Cardiac enzymes negative. Lactic acid 1.6. TSH 0.94. X-RAY FINDINGS: Chest x-ray based on my review, no acute cardiopulmonary process. DISCHARGE MEDICATIONS: Tessalon 100 mg p.o. t.i.d. p.r.n., Omnicef 300 mg p.o. twice daily for 5 days, Plavix 75 mg p.o. daily, vitamin B12 1000 mcg p.o. daily , Pepcid 20 mg p.o. daily, Breo Ellipta one inhalation daily, folic acid 1 mg p.o. daily, mirabegron 25 mg p.o. daily, multivitamin 1 tablet p.o. daily, Florastor 250 mg p.o. daily for 7 days, Zoloft 25 mg p.o. daily. CONTRAINDICATIONS: None. CODE STATUS: FULL CODE. INPATIENT CONSULTANTS: None. ALLERGIES: No known drug allergy. DISCHARGE PLAN: Post hospital, the patient is planned for discharge to residential home. Subsequently, the patient will follow up with primary care physician. HOSPITAL COURSE: An 87-year-old male with above-mentioned medical problem who was admitted by Dr. Lauren Bruno. Please see her H&P for further detail. The patient was admitted on 05/02/2018. The patient lives at home. From there , he was sent to emergency room because of altered mental status, decreased appetite and generalized weakness. The patient was found with urinary tract infection. He has suprapubic catheter and he was treated with broad-spectrum antibiotic therapy while in hospital. He was given Rocephin while in hospital and upon discharge, we changed to Omnicef. His urine culture remained negative. His blood culture remained negative. His routine blood tests showed initially acute kidney failure that was improved with IV fluid. His metabolic encephalopathy, resolved. At this point, the patient is physically normal and he is afebrile and hemodynamically stable. Given his generalized weakness, the patient was requiring placement to residential home and the patient is going to go to [facility]. The patient is seen and examined at bedside today. Review of systems is not reliable with the patient, because of his level of cognitive status. PHYSICAL EXAMINATION: VITAL SIGNS: Currently, temperature 97.9, pulse 77, respiratory rate 18, saturation 93% on room air, blood pressure 143/72, weight 279 pounds. GENERAL: The patient is currently alert, awake, no obvious acute distress, follows simple commands. HEAD: Normocephalic, atraumatic. EYES: Pupils round, reactive to light. Extraocular muscle intact. ENT: Oropharynx within normal limit. LUNGS: Clear to auscultation without any rhonchi or rales. CARDIAC: S1, S2 regular without any murmur. ABDOMEN: Soft and benign. Suprapubic catheter in place. NEUROLOGIC: Nonfocal examination. Paper work for discharge done. Discharge medication reconciliation done. Total time spent on discharge day 31 minutes. MTDD
[2018-05-06 17:21] VITALS: BP 132/68; TEMP 98.6
== END 2018-05-06 15:06 | DRG 698 ==
LOC: ERS 20:02 → T4-B 05-02 01:01
PROVIDERS: ADMIT Hospitalist; ATTEND Hospitalist
DX: T83.510A Infection and inflammatory reaction due to cystostomy catheter, initial encounter (principal); G93.41 Metabolic encephalopathy; N17.9 Acute kidney failure, unspecified; N39.0 Urinary tract infection, site not specified; E44.0 Moderate protein-calorie malnutrition; Z68.1 Body mass index [BMI] 19.9 or less, adult; F41.9 Anxiety disorder, unspecified; F32.9 Major depressive disorder, single episode, unspecified; I25.10 Atherosclerotic heart disease of native coronary artery without angina pectoris; F01.50 Vascular dementia, unspecified severity, without behavioral disturbance, psychotic disturbance, mood disturbance, and anxiety; Z93.59 Other cystostomy status; L89.212 Pressure ulcer of right hip, stage 2; L89.152 Pressure ulcer of sacral region, stage 2; G30.9 Alzheimer's disease, unspecified; F02.80 Dementia in other diseases classified elsewhere, unspecified severity, without behavioral disturbance, psychotic disturbance, mood disturbance, and anxiety; Z91.81 History of falling; I25.2 Old myocardial infarction; Z95.1 Presence of aortocoronary bypass graft; R62.7 Adult failure to thrive; E78.5 Hyperlipidemia, unspecified; Z87.442 Personal history of urinary calculi; I71.4 Abdominal aortic aneurysm, without rupture; N18.9 Chronic kidney disease, unspecified
CPT/HCPCS: 36415; 71045; 80048; 80053; 81003; 81015; 82553; 83605; 84443; 84484; 85025; 87040; 87077; 87086; 87149; 93005; 96361; 96365; A4216; G8978-GP-CM; G8979-GP-CK; G8996-GN-CJ; G8997-GN-CJ; J0696; J1644; J7050

== ENCOUNTER 2018-09-22 11:01 | Emergency (ER) | payer MEDICARE, MEDICAID ==
[2018-09-22] MEDS ORDERED: Lidocaine 4% Topical Sol 50 ML BOT ONE (12:44)
[2018-09-22] MEDS ORDERED: Lidocaine 2% Jelly 5 ML TUBE ONE (12:44)
--- NOTE | 2018-09-22 21:25 | CON ---
DATE OF CONSULTATION: 09/22/2018 REASON FOR CONSULTATION: Nonfunctioning suprapubic tube. HISTORY OF PRESENT ILLNESS: Mr. Reilly Sotelo is an 88-year-old male with outlet obstruction presumptively due to prostate cancer, who presents to the emergency room after a suprapubic tube change about 2 days ago apparently by the [facility]. The patient resides with his family at home and underwent suprapubic catheter exchange. The patient is routinely followed by Dr. Claudia Foley of the [facility]. Mr. Sotelo has had low or no urine output via SP tube over the last 48 hours. He has some redness and fullness to the suprapubic area around the indwelling suprapubic tube. A large amount of the tube is visible and there is essentially no output in the current bag. ALLERGIES: NO KNOWN DRUG ALLERGIES. CURRENT MEDICATIONS: The patient is unable to report any medications and the family does not have any drug list with them today. PAST MEDICAL HISTORY: 1. Alzheimer's dementia. 2. History of coronary artery disease and cardiac history, including myocardial infarction. 3. Thoracoabdominal aneurysm. 4. Hyperlipidemia. 5. 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 PAST SURGICAL HISTORY: 1. Carotid endarterectomy. 2. Suprapubic catheter insertion. 3. Coronary artery bypass graft surgery. PSYCHIATRIC HISTORY: Includes depression and Alzheimer's dementia. SOCIAL HISTORY: No current history of alcohol use or drug use. FAMILY MEDICAL HISTORY: Noncontributory to the presentation. PHYSICAL EXAMINATION: VITAL SIGNS: The patient is afebrile. Current temperature is 99.3, pulse 81, respirations 16, blood pressure 132/72, and O2 saturations 95% on room air. GENERAL: This is a patient with Alzheimer's dementia. He is not very communicative excepting grunting noises. He does mostly obtain a position in bed, although he is able to fully straighten his legs on command. He is generally emaciated. I would estimate this patient's life expectancy from the current examination to be probably less than a year. HEAD, EYES, EARS, NOSE, AND THROAT: Extraocular movements are intact. Sclerae are anicteric. Oropharynx is clear. NECK: Supple. LUNGS: Clear to auscultation bilaterally. The patient underwent previous coronary bypass operation. ABDOMEN: Minimally full superiorly. Inferiorly at the umbilicus and below, there is moderate fullness, there is some redness and injection of the area around the indwelling suprapubic tube of approximately 2 to 3 cm diameter. There is minimal granulation tube around the indwelling [place] suprapubic tube. The SP tube appears to be incorrectly placed as there was a large amount of catheter present. This is attached to a StatLock device on the patient's leg, and this probably led to traction on the SP tube and pulling it up into his SP tube tract based on my examination. The catheter neither flushes nor back flushes correctly. GENITOURINARY: Phallus is without lesion. Testes are without lesions. There is no evidence of inguinal canal hernia. Digital rectal examination finds a rock hard prostate gland consistent with probable prostate cancer or old chronic prostatitis with calcification. There is soft brown stool present, there are no rectal lesions. The patient does not appear to have decubiti, but he has thin skin covering the sacral area. EXTREMITIES: The patient has full mobile use of all 4 extremities. NEUROLOGIC: The patient is not oriented to person, place, or time. He is able to use all 4 extremities. Gait was not assessed due to the patient's demented and bedridden condition. PROCEDURE: The patient's existing indwelling suprapubic catheter site was prepped and draped in the usual sterile fashion using Betadine. The granulation tissue appeared minimal and was not treated. We filled the patient's bladder with about 60 mL of sterile saline and discontinued the existing suprapubic tube. We placed a new SP tube in patient's tract and this was advanced into the bladder and the balloon was subsequently inflated to 15 mL. The catheter drained appropriately after this. Urine specimen was collected for culture from the new indwelling catheter. I understand the previous culture has already been obtained and recommended that the study be cancelled. The catheter was properly secured at the patient's right flank using Microfoam tape, obtained about the 300 to 400 mL of cloudy urine and then, I irrigated the bladder to a full clear state using sterile water. The patient tolerated placement of the catheter without difficulty. ASSESSMENT: 1. Dislodged suprapubic tube, catheter replaced in ER. 2. Markedly indurated prostate gland, likely prostate cancer to my examination. The patient is followed by Dr. Foley and a diagnosis of clinical prostate cancer might be inappropriate for this patient with PSA testing alone used as an indicator. Prostate needle biopsy would actually be required for pathologic diagnosis. Information regarding prostate cancer and genetic risk was transmitted to the patient's family and recommended appropriate screening based on race and probable clinical prostate cancer in this patient. Total consultation assessment time in this patient including the replacement of the catheter was over 80 minutes. Job ID: [id number]
== END 2018-09-22 14:11 | disposition home or self-care (01) ==
LOC: ERS 11:01
DX: T83.021A Displacement of indwelling urethral catheter, initial encounter (principal); I25.10 Atherosclerotic heart disease of native coronary artery without angina pectoris; I25.2 Old myocardial infarction; E78.5 Hyperlipidemia, unspecified; F32.9 Major depressive disorder, single episode, unspecified
CPT/HCPCS: 51702; 87077; 87086; 87186; J2001

== ENCOUNTER 2018-10-02 15:30 | Observation (INO) | payer MEDICARE, MEDICAID ==
[2018-10-02 16:46] LABS: #Basophils 0.1 thou/uL (0.0-0.2); #Eosinphils 0.3 thou/uL (0.0-0.7); #Lymphocytes 2.8 thou/uL (1.20-3.40); #Monocytes 0.5 thou/uL (0.11-0.59); %Basophils 0.6 % (0.0-1.0); %Eosinophils 3.2 % (0.0-10.0); %Lymphocytes 32.4 % (21.0-51.0); %Monocytes 5.9 % (0.0-10.0); %Neutrophils 57.8 % (42.0-75.0); Hemoglobin 13.9 g/dL (14.0-18.0); Mean Corpuscular HGB CONC 31.9 g/dL (32.0-36.0); Mean Corpuscular Hemoglobin 28.3 pg (27.0-31.0); Mean Corpuscular Volume 88.6 fL (78.0-98.0); Platelet Count 219 thou/uL (130-400); RBC Distribution Width 14.8 % (11.5-14.5); White Blood Cell (WBC) Count 8.6 thou/uL (4.8-10.8)
[2018-10-02 17:08] LABS: ALT (SGPT) 9 U/L (8-55); AST (SGOT) 17 U/L (5-34); Albumin 3.6 g/dL (3.4-4.8); Alkaline Phosphatase 162 U/L (40-150); Anion Gap 19 mmol/L (10-20); BUN (Urea Nitrogen) 38 mg/dL (8.4-25.7); Bilirubin, Total 0.5 mg/dL (0.2-1.2); Calc. Creatinine Clearance 0 mL/min (70-130); Calcium 9.5 mg/dL (7.8-10.44); Carbon Dioxide 18 mmol/L (23-31); Chloride 104 mmol/L (98-107); Estimated GFR-MDRD 53; Globulin 4.9 g/dL (2.4-3.5); Glucose 80 mg/dL (83-110); Protein, Total 8.5 g/dL (5.8-8.1); Sodium 136 mmol/L (136-145)
[2018-10-02 17:20] LABS: Bilirubin Negative (Negative); Blood, Urine Small (Negative); Clarity CLOUDY (Clear); Glucose, Urine (Dipstick) Negative (Negative); Leukocyte Large (Negative); Nitrite Negative (Negative); Protein, Urine (Dipstick) 30 mg/dL (Neg-Trace); Specific Gravity, Urine 1.016 (1.002-1.036); Urobilinogen 0.2 mg/dL (0.2-1.0); pH, Urine 7.5 (5.0-9.0)
[2018-10-02 17:24] LABS: Bacteria/HPF 2+ HPF (None Seen); Pathc Cast-AUWi Flag 1.74 (0-2.49); Squamous Epithelial 0-3 HPF (0-3)
--- NOTE | 2018-10-02 17:30 | RAD ---
PORTABLE AP CHEST X-RAY: 10/02/18 HISTORY: Generalized weakness. Dementia. COMPARISON: 05/01/18 FINDINGS: Postsurgical changes related to CABG are noted. Cardiac silhouette and pulmonary vasculature are with in normal limits for the portable technique of the study. There are linear densities again seen in th e right mid lung zone at the right lung likely related to mild chronic lung changes. There is mild el evation of the right hemidiaphragm. Left lung is hyper expanded but clear. There are linear densities seen overlying the left lateral chest most likely related to multiple skin folds. There are no find ings to suggest a pneumothorax. Vascular calcifications are seen in the thoracic aorta. There is oste openia. 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 IMPRESSION: Mild chronic lung changes without evidence of an acute cardiopulmonary process. POS: [facility]
[2018-10-02 17:36] LABS: Crystals/HPF 1+ CA OXALATE HPF (Negative); Hyaline Casts/LPF NONE SEEN LPF (0-3 Hyaline)
[2018-10-02] MEDS ORDERED: Midazolam HCl 2 mg/2 ml Vial ONE (20:06)
[2018-10-02] MEDS ORDERED: Lidocaine 1% (PF) 30 ML VIAL ONE (20:40)
[2018-10-02] MEDS ORDERED: cefTRIAXone\\ROCEPHIN 2 GM VIAL ONE (21:02)
[2018-10-02] MEDS ORDERED: Sodium Chloride 0.9% 1,000 ML IV SCH ×2 (23:13→23:20)
[2018-10-02] MEDS ORDERED: Acetaminophen 325 MG TAB PO PRN (23:20)
[2018-10-03 00:09] LABS: Lactic Acid 2.5 mmol/L (0.5-2.2)
--- NOTE | 2018-10-03 00:11 | HP ---
This is a [facility] patient. CHIEF COMPLAINT: Generalized weakness. HISTORY OF PRESENT ILLNESS: Mr. Sotelo is an 88-year-old gentleman, who was sent over from the correction for generalized weakness. The patient has advanced Alzheimer's and is unable to give any additional information or history and therefore, I am unable to tell how they were able to determine he was weak. It is unclear whether or not he is ambulatory at all. However, when he was evaluated in the ER, he was found to have findings consistent with a urinary tract infection as well as an elevated lactic acid. He has a history of suprapubic catheter in place with multiple UTIs in the past and is being placed in observation for probable urinary tract infection as well as mild acute renal failure. Otherwise, I am unable to get any additional information regarding his history of present illness. REVIEW OF SYSTEMS: Unobtainable due to the patient's advanced dementia. PAST MEDICAL HISTORY: Taken from a previous history and physical dated 05/02, and includes Alzheimer's dementia, urinary tract infections, coronary artery disease, and abdominal aortic aneurysm. PAST SURGICAL HISTORY: He has had a carotid endarterectomy. ALLERGIES: NO KNOWN DRUG ALLERGIES. SOCIAL HISTORY: He is a nonsmoker. No alcohol or drug use. Code status will need to be obtained from either correction records or from family. CURRENT MEDICATIONS: These are also unable to be obtained at this time. PHYSICAL EXAMINATION: GENERAL: The patient is disoriented and essentially nonverbal other than answering a few questions with simple yes no or 1-2 word sentences. He is cachectic in appearance with temporal muscle wasting as well as general muscle wasting and atrophy. VITAL SIGNS: Blood pressure was 149/86, heart rate 74, respiratory rate of 18, temperature is 97.6. HEENT: His pupils are equal, round, and reactive. Extraocular muscles are intact. Sclerae anicteric. Throat, there is no erythema, no exudate. NECK: No adenopathy. No bruits. LUNGS: Clear to auscultation. There is no wheezing, no rales. No rhonchi. CARDIOVASCULAR: He has a normal S1 and S2. There is no S3 or S4. No murmurs, clicks, or rubs. ABDOMEN: Scaphoid. It is soft. Positive for bowel sounds. There is no rebound, no guarding. EXTREMITIES: Again, significant muscle wasting, however, there was no skin breakdown. No edema. Neurologically, he is moving all extremities. SKIN AND INTEGUMENT: No skin breakdown. No rash. LABORATORY RESULTS: White blood cell count is 8.6, hemoglobin 13.9, hematocrit is 43.4, platelet count was 219. Sodium 136, potassium 5.0, chloride is 104, CO2 is 18, BUN of 38, creatinine 1.5, glucose is 53. Lactic acid was 2.7. Urinalysis shows large leukocyte esterase, 2+ bacteria, and too numerous to count wbc's. He also had a chest x-ray, in which his heart size is normal. He does have some chronic interstitial lung disease, but mild and no obvious infiltrate or effusion. This is by my reading. ASSESSMENT AND PLAN: This is a pleasant 88-year-old gentleman, who was sent over due to generalized weakness; however, he appears to be likely close to his baseline. I suspect that most of his symptoms are actually in direct relationship to what is expected for a patient with advanced Alzheimer's. The acute kidney injury is likely due to poor oral intake, which is also expected with advanced dementia and I suspect he has a slow decline. He also has findings consistent with urinary tract infection. However, with the suprapubic catheter, bacterial colonization is expected. Since he has an elevated lactic acid, we will go ahead and treat him while cultures are pending. We will start with Rocephin based on cultures in earlier last month in which he grew Pseudomonas and Proteus, which were pansensitive. Likely, we will need to try to contact family to discuss their overall expectations with regard to his care in the future going forward. Job ID: [id number]
[2018-10-03 00:29] VITALS: BMI 10.4
[2018-10-03 06:01] LABS: #Eosinphils 0.1 thou/uL (0.0-0.7); #Lymphocytes 1.9 thou/uL (1.20-3.40); #Monocytes 0.9 thou/uL (0.11-0.59); #Neutrophils 13.8 thou/uL (1.40-6.50); %Basophils 0.1 % (0.0-1.0); %Eosinophils 0.7 % (0.0-10.0); %Lymphocytes 11.2 % (21.0-51.0); %Monocytes 5.1 % (0.0-10.0); Hemoglobin 13.3 g/dL (14.0-18.0); Mean Corpuscular HGB CONC 33.4 g/dL (32.0-36.0); Mean Corpuscular Hemoglobin 28.5 pg (27.0-31.0); Mean Corpuscular Volume 85.1 fL (78.0-98.0); Mean Platelet Volume 7.9 fL (7.4-10.4); Platelet Count 174 thou/uL (130-400); RBC Distribution Width 14.6 % (11.5-14.5); Red Blood Cell (RBC) Count 4.66 mill/uL (4.70-6.10); White Blood Cell (WBC) Count 16.6 thou/uL (4.8-10.8)
[2018-10-03 06:18] LABS: Anion Gap 17 mmol/L (10-20); BUN (Urea Nitrogen) 33 mg/dL (8.4-25.7); Calc. Creatinine Clearance 20 mL/min (70-130); Carbon Dioxide 16 mmol/L (23-31); Chloride 108 mmol/L (98-107); Estimated GFR-MDRD 67; Glucose 93 mg/dL (83-110); Potassium 5.3 mmol/L (3.5-5.1); Sodium 136 mmol/L (136-145)
[2018-10-03] MEDS ORDERED: Prevnar 13-Val Conj/PF 0.5 ML SYRINGE IM ONE (09:00)
--- NOTE | 2018-10-03 09:33 | PDOC.PN ---
- Subjective Encounter Start Date: 10/03/18 Encounter Start Time: 09:32 Mr. Sotelo was seen today in follow-up of UTI. He is resting in bed comfortably. He does not appear in any distress. - Objective MAR Reviewed: Yes Vital Signs & Weight: Vital Signs (12 hours) Temp Pulse Resp BP BP Pulse Ox 10/03/18 08:00 97.4 F L 78 20 140/82 100 10/03/18 03:56 97.7 F 88 16 168/76 H 100 Weight Weight 74 lb 11.787 oz I&O: 10/02/18 10/03/18 10/04/18 06:59 06:59 06:59 Intake Total 450 600 Output Total 275 Balance 175 600 Result Diagrams: 10/03/18 05:19 10/03/18 05:19 Phys Exam - Physical Examination HEENT: PERRLA Respiratory: no wheezing, no rales, no rhonchi, clear to auscultation bilateral Cardiovascular: RRR, no significant murmur, no rub Gastrointestinal: soft, non-tender, no distention, positive bowel sounds Musculoskeletal: pulses present, edema present Dx/Plan (1) UTI (urinary tract infection) due to urinary indwelling catheter Code(s): T83.511A - I/I REACT D/T INDWELLING URETHRAL CATHETER, INIT; N39.0 - URINARY TRACT INFECTION, SITE NOT SPECIFIED Status: Acute Qualifiers: Indwelling urinary catheter type: cystostomy catheter (2) Dementia Code(s): F03.90 - UNSPECIFIED DEMENTIA WITHOUT BEHAVIORAL DISTURBANCE Status: Chronic Qualifiers: Dementia type: vascular dementia Dementia behavioral disturbance: without behavioral disturbance Qualified Code(s): F01.50 - Vascular dementia without behavioral disturbance (3) Protein-calorie malnutrition, moderate Code(s): E44.0 - MODERATE PROTEIN-CALORIE MALNUTRITION Status: Chronic (4) Acute kidney failure Status: Acute - Plan * UTI- complicated due to a chronic suprapubic catheter- continue Rocephin * SHAYY- slightly improved * Advanced Dementia- likely the main cause for his symptoms * Will evaluate swallowing- can likely return to the [place] soon
[2018-10-03] MEDS: Amlodipine 5 MG TAB PO SCH (10:02)
[2018-10-03] MEDS: Sodium Chloride 0.9% 1,000 ML IV SCH ×3 (10:03→19:30)
[2018-10-03] MEDS: Enoxaparin Sodium 30 MG/0.3 ML SYRINGE SC SCH (10:03)
--- NOTE | 2018-10-03 17:43 | PDOC.EVN ---
Event Note - Event Note Event Note: I spoke with the patient's daughter, and MPOA, Bell Luis Manuel regarding his care and prognosis. She clarified for me his symptoms which made her bring him to the hospital. He is coming from home. I explained to her the natural progression of Alzdebbi's Dementia. She acknowledges that he has been becoming sicker more frequently and that he is eating less. At times it takes family member 2 hours to feed him. She says she is take him home tomorrow, and she will relay the information discussed today with her other siblings. Code status was discussed, and he remains a full code. APS time 20 minutes.
[2018-10-03] MEDS ORDERED: cefTRIAXone\\ROCEPHIN 1 GM in Sodium Chloride 0.9% 100 ML IVPB SCH (21:00)
[2018-10-04] MEDS ORDERED: Lorazepam 2 MG/ML VIAL SLOW IVP PRN (04:36)
[2018-10-04 08:06] VITALS: TEMP 97.8
--- NOTE | 2018-10-04 08:09 | PDOC.PN ---
- Subjective Encounter Start Date: 10/04/18 Encounter Start Time: 08:07 Mr. Sotelo was seen today in follow-up of UTI and advanced dementia. He appears comfortable. He was reported to walk up and down the bui yesterday with assistance. - Objective MAR Reviewed: Yes Vital Signs & Weight: Vital Signs (12 hours) Temp Pulse Resp BP BP Pulse Ox 10/04/18 08:00 97.8 F 78 16 179/84 H 100 10/04/18 05:15 97.9 F 72 20 144/80 H 99 10/04/18 00:00 97.9 F 70 20 148/78 H 98 Weight Admit Weight 74 lb 11.787 oz Weight 74 lb 11.787 oz I&O: 10/03/18 10/04/18 10/05/18 06:59 06:59 06:59 Intake Total 450 4019 1176 Output Total 275 1550 Balance 175 2469 1176 Result Diagrams: 10/03/18 05:19 10/03/18 05:19 Phys Exam - Physical Examination HEENT: PERRLA Respiratory: no wheezing, no rales, no rhonchi, clear to auscultation bilateral Cardiovascular: RRR, no significant murmur, no rub Gastrointestinal: soft, non-tender, no distention, positive bowel sounds Musculoskeletal: no edema Dx/Plan (1) UTI (urinary tract infection) due to urinary indwelling catheter Code(s): T83.511A - I/I REACT D/T INDWELLING URETHRAL CATHETER, INIT; N39.0 - URINARY TRACT INFECTION, SITE NOT SPECIFIED Status: Acute Qualifiers: Indwelling urinary catheter type: cystostomy catheter (2) Dementia Code(s): F03.90 - UNSPECIFIED DEMENTIA WITHOUT BEHAVIORAL DISTURBANCE Status: Chronic Qualifiers: Dementia type: vascular dementia Dementia behavioral disturbance: without behavioral disturbance Qualified Code(s): F01.50 - Vascular dementia without behavioral disturbance (3) Protein-calorie malnutrition, moderate Code(s): E44.0 - MODERATE PROTEIN-CALORIE MALNUTRITION Status: Chronic (4) Acute kidney failure Status: Acute - Plan * UTI- urine culture is growing Pseudomonas. He has improved on Omnicef, and IV fluids, likely more due to the IV fluids * Since the culture is growing Pseudomonas- will send him home on Levaquin * Advanced Dementia .
[2018-10-04] MEDS: Sodium Chloride 0.9% 1,000 ML IV SCH (08:49)
[2018-10-04] MEDS: Enoxaparin Sodium 30 MG/0.3 ML SYRINGE SC SCH (11:33)
[2018-10-04] MEDS: Amlodipine 5 MG TAB PO SCH (11:33)
[2018-10-04 11:38] VITALS: BP 152/74
--- NOTE | 2018-10-04 12:17 | DIS ---
DATE OF ADMISSION: 10/02/2018 DATE OF DISCHARGE: 10/04/2018 DISCHARGE DISPOSITION: Home. PRIMARY DISCHARGE DIAGNOSES: 1. Urinary tract infection. 2. Acute kidney injury, resolved. 3. Advanced dementia with Alzheimer disease. 4. Moderate protein-calorie malnutrition. DISCHARGE MEDICATIONS: Include; 1. Levaquin 500 mg daily. 2. Folic acid 1 mg daily. 3. Pepcid 20 mg daily. 4. Vitamin B12 of 1000 mcg daily. 5. Zoloft 25 mg daily. 6. Myrbetriq Extended Release 25 mg daily. 7. Breo Ellipta 1 puff daily. 8. Plavix 75 mg daily. 9. Benzonatate 100 mg t.i.d. as needed. CODE STATUS: Full code. ALLERGIES: NO KNOWN DRUG ALLERGIES. HOSPITAL COURSE: Mr. Sotelo is an 88-year-old gentleman, who has advanced dementia. He also has urinary retention and has a suprapubic catheter in place. He was brought in by family due to concerns that he seemed more lethargic lately and weaker. When I saw him in the emergency room, he actually appeared to be fairly close to his baseline. It is possible this could have been due to some IV fluids that was given in the ER. Nevertheless, he was admitted for presumed urinary tract infection. However, with a chronic indwelling catheter, it is likely that this represents mostly colonization. A urine culture was sent from the urine drawn in the ER and at the time of discharge, it was growing Pseudomonas. It is noted that he had a urine culture done not long prior actually a few weeks earlier on September 22, which grew Pseudomonas as well, which was sensitive to quinolones. He will be discharged home today on Levaquin. I did explain to the daughter that with his advanced dementia, he is likely going to have recurrent problems with urinary tract infection, also with a suprapubic catheter as well. He also has had significant weight loss and has significant malnutrition. He is likely to have recurrent episodes of dehydration and UTI as a consequence of his advanced dementia. The patient's daughter expressed understanding and said she was thinking more about code status and talked this over with her other siblings. The patient was subsequently discharged home on 10/04/2018. Job ID: [id number]
== END 2018-10-04 13:09 | disposition home or self-care (01) ==
LOC: ERS 15:30 → ONC 18:30
PROVIDERS: ADMIT Internal Medicine; ATTEND Internal Medicine
DX: T83.511A Infection and inflammatory reaction due to indwelling urethral catheter, initial encounter (principal); N17.9 Acute kidney failure, unspecified; G30.9 Alzheimer's disease, unspecified; F02.80 Dementia in other diseases classified elsewhere, unspecified severity, without behavioral disturbance, psychotic disturbance, mood disturbance, and anxiety; E44.0 Moderate protein-calorie malnutrition; Z68.1 Body mass index [BMI] 19.9 or less, adult; I25.10 Atherosclerotic heart disease of native coronary artery without angina pectoris; I71.4 Abdominal aortic aneurysm, without rupture; Z79.2 Long term (current) use of antibiotics; Z79.02 Long term (current) use of antithrombotics/antiplatelets; Z79.899 Other long term (current) drug therapy; Z98.890 Other specified postprocedural states
CPT/HCPCS: 36680; 71045; 80048; 80053; 83605; 83880; 84484; 85025 ×2; 87077; 87086; 87184; 87186; 93005; 96361 ×3; 96365; 96366; 96372; 96375; 97116 ×2; 97139 ×4; 97530; 99285; G0378 ×2; 36415; 36416; 81003; 81015; J0696; J1650; J2001; J2060; J2250; J7050